=== PATIENT | female | born 1960 | race Caucasian/White ===

== ENCOUNTER → 2017-03-31 | Outpatient (CLI) | payer OTHER ==
--- NOTE | 2017-04-01 09:23 | RAD ---
EXAM DESCRIPTION: Knee,Right Complete CLINICAL HISTORY: 56 years, Female, PAIN IN RIGHT KNEE COMPARISON: None. FINDINGS: Extensive prior surgery for proximal tibial fracture with depression of the medial tibial plateau. Side plate with four screws present proximal medial tibia transfixing the area of the depressed fracture which is not completely healed. There is also a orthopedic screw projecting front to back in the area of the tibial spines. Bones osteopenic Moderate joint space narrowing both medially and laterally. Slight patellofemoral joint space. Small joint effusion. IMPRESSION: Extensive postsurgical changes following fracture of the proximal tibia with depression of the medial tibial plateau. No findings of hardware failure. Fracture not yet healed radiographically . Electronically signed by: Luc Quesada MD 04/01/2017 9:22 AM CDT
== END ==
LOC: RAD 09:23
PROVIDERS: ATTEND Orthopaedic Surgery
DX: M25.561 Pain in right knee (principal); Z98.890 Other specified postprocedural states

== ENCOUNTER → 2017-05-12 | Outpatient (CLI) | payer OTHER ==
--- NOTE | 2017-05-13 11:14 | RAD ---
EXAM DESCRIPTION: Knee,Right Complete CLINICAL HISTORY: 56 years, Female, KNEE PAIN COMPARISON: March 31, 2017 TECHNIQUE: Four views of the right knee FINDINGS: Proximal tibia is internally fixed with crossing screws in the subplateau region as well as a medial sideplate buttressing the medial metaphysis. Marked osteopenia is present. Very slight inferior positioning of the medial tibial plateau appears unchanged from previous studies. No significant joint effusion is seen and no new fractures are noted. Slight increase in sclerosis is evident and a persistent small step-off follow-up in the anterior aspect of the tibial plateaus probably involving the lateral component on the lateral view is little changed. IMPRESSION: 1. Internal fixation of the proximal tibia with healing fractures of the tibial metaphysis and medial tibial plateau in stable alignment. 2. Marked osteopenia without new fractures and no evidence of joint effusion. Electronically signed by: Jason Pederson MD 05/13/2017 11:12 AM CDT
== END ==
LOC: RAD 08:03
PROVIDERS: ATTEND Orthopaedic Surgery
DX: S82.101K Unspecified fracture of upper end of right tibia, subsequent encounter for closed fracture with nonunion (principal)

== ENCOUNTER → 2017-06-09 | Outpatient (CLI) | payer OTHER ==
--- NOTE | 2017-06-09 13:34 | RAD ---
EXAM DESCRIPTION: Knee,Right Complete CLINICAL HISTORY: 56 years Female, CLOSED FX OF TIBIAL PLATEAU COMPARISON: May 12, 2017 and March 31, 2017 FINDINGS: 6 views of the right knee show postoperative changes in the right tibia without apparent hardware complication. There is a partially healed, slightly displaced medial tibial plateau fracture, stable from May 12, 2017. Slightly inferior displacement of the medial tibial plateau is stable from prior studies. There is a small right knee hemarthrosis. No acute fracture or malalignment is identified. IMPRESSION: Slightly displaced and partially united medial tibial plateau fracture, unchanged from prior exams. Postoperative changes without apparent hardware complication. Electronically signed by: Balwinder Austin MD 06/09/2017 1:33 PM CDT Workstation: [email or web address]
== END ==
LOC: RAD 07:43
PROVIDERS: ATTEND Orthopaedic Surgery
DX: S82.101K Unspecified fracture of upper end of right tibia, subsequent encounter for closed fracture with nonunion (principal)

== ENCOUNTER → 2017-06-30 | Outpatient (CLI) | payer OTHER ==
--- NOTE | 2017-07-01 08:49 | RAD ---
EXAM DESCRIPTION: Knee,Right Complete CLINICAL HISTORY: 56 years,Female,UNSPECIFIED FX OF UPPER END OF RIGHT TIBIA COMPARISON: June 09, 2017 FINDINGS: The right knee demonstrates metadiaphyseal medial fracture to tibial plateau fixated with sideplate and screws. The fracture line demonstrates mostly sclerosis and is mostly healed. No change since prior study. No significant incongruency of the articular surface on this plain film.. The joint spaces mildly loss in the patellofemoral compartment and tibial femoral compartments. The soft tissues are unremarkable. No joint effusion. IMPRESSION: Stable right knee demonstrating metadiaphyseal and tibial plateau fracture which is mostly healed with sideplate and screws. Mild tricompartmental osteoarthritic changes Electronically signed by: Hector Amaya MD 07/01/2017 8:48 AM CDT
== END | disposition home or self-care (01) ==
LOC: RAD 07:57
PROVIDERS: ATTEND Orthopaedic Surgery
DX: S82.101K Unspecified fracture of upper end of right tibia, subsequent encounter for closed fracture with nonunion (principal)

== ENCOUNTER → 2017-08-11 | Outpatient (CLI) | payer OTHER ==
--- NOTE | 2017-08-11 12:02 | RAD ---
EXAM DESCRIPTION: Knee,Right Complete CLINICAL HISTORY: 56 years, Female, CLOSED FX OF TIBIAL PLATEAU COMPARISON: June 30 FINDINGS: Stable appearance of plate and screws transfixing medial tibial plateau fracture . Slight increased sclerosis around the fracture which is almost entirely healed. Moderate narrowing lateral joint compartment. Slight narrowing medially. IMPRESSION: Stable alignment fracture medial tibial plateau. Hardware satisfactory position. Near-complete healing. Electronically signed by: Luc Quesada MD 08/11/2017 12:01 PM CDT
== END | disposition home or self-care (01) ==
LOC: RAD 08:41
PROVIDERS: ATTEND Internal Medicine Interventional Cardiology
DX: S82.101K Unspecified fracture of upper end of right tibia, subsequent encounter for closed fracture with nonunion (principal)

== ENCOUNTER → 2017-11-24 | Outpatient (CLI) | payer OTHER ==
--- NOTE | 2017-11-24 09:35 | RAD ---
EXAM DESCRIPTION: Knee,Right Complete CLINICAL HISTORY: 56 years,Female,UNILATERAL PRIMARY OSTEOARTHRITIS COMPARISON: None FINDINGS: The right knee demonstrates prior tibial plateau fracture fixated with screws and sideplate. No evidence of Visible or evidence hardware failure or lucency about the hardware devices.. The joint spaces mild loss of joint space in the medial compartment and patellofemoral compartment and minimal on the lateral compartment. The soft tissues are unremarkable. No joint effusion. IMPRESSION: Prior tibial plateau fracture fixated with sideplate and screws without evidence hardware failure. The right knee demonstrates mild tricompartmental osteoarthritic changes. Electronically signed by: Hector Amaya MD 11/24/2017 9:33 AM [facility]
== END | disposition home or self-care (01) ==
LOC: RAD 08:21
PROVIDERS: ATTEND Orthopaedic Surgery
DX: M17.11 Unilateral primary osteoarthritis, right knee (principal)